=== PATIENT | female | born 1975 | race Asian ===

== ENCOUNTER 2020-12-30 11:30 | Emergency (ER) | payer OTHER ==
[~2020-12-30] VITALS: Ht 160 cm; Wt 71.4 kg
[2020-12-30] MEDS ORDERED: MORPHINE SULFATE 2 MG/ML SYRINGE IVP ONE (12:15)
[2020-12-30] MEDS ORDERED: ONDANSETRON HCL 4 MG/2 ML VIAL IVP ONE (12:15)
[2020-12-30 12:18] LABS: BASOPHILS % (AUTO) 0.6 % (0.0-2.0); EOSINOPHILS % (AUTO) 2.9 % (1.0-6.0); HEMATOCRIT 41.2 % (36-46); HEMOGLOBIN 13.6 g/dL (12.0-16.0); LYMPHOCYTES # (AUTO) 2.3 K/uL (1.0-4.8); LYMPHOCYTES % (AUTO) 36.3 % (22.0-44.0); MEAN CORPUSCULAR HEMOGLOBIN 30.7 pg (26.0-34.0); MEAN CORPUSCULAR VOLUME 93 fL (80-100); MONOCYTES # (AUTO) 0.4 K/uL (0.1-1.0); MONOCYTES % (AUTO) 5.8 % (2.0-9.0); NEUTROPHILS # (AUTO) 3.5 K/uL (1.8-7.7); NEUTROPHILS % (AUTO) 54.4 % (40.0-70.0); PLATELET COUNT (AUTO) 231 K/uL (150-450); RED BLOOD CELL COUNT(AUTO) 4.43 MIL/uL (4.00-5.20); RED CELL DISTRIBUTION WIDTH 12.9 % (11.5-14.5)
[2020-12-30 12:30] LABS: ANION GAP 10 mmol/L (8-16); CALCIUM, TOTAL 8.8 mg/dL (8.8-10.5); CARBON DIOXIDE 27 mmol/L (22-29); CHLORIDE 103 mmol/L (98-107); CREATININE 0.73 mg/dL (0.60-1.30); GLOMERULAR FILTR. RATE CALC > 60 mL/min (>60); GLUCOSE,RANDOM 86 mg/dL (70-110); POTASSIUM 3.8 mmol/L (3.5-5.1); SODIUM SERUM 140 mmol/L (136-145); UREA NITROGEN, BLOOD 19 mg/dL (7-18)
[2020-12-30 12:44] LABS: ALANINE AMINOTRANSFERASE 37 U/L (12-78); ALBUMIN 3.9 g/dL (3.4-5.0); ALKALINE PHOSPHATASE 54 U/L (46-116); ASPARTATE AMINOTRANSFERASE 25 U/L (15-37); BILIRUBIN,TOTAL 0.6 mg/dL (0.1-1.0); HCG,QUANTITATIVE < 1 mIU/mL (0-6); TOTAL PROTEIN, SERUM 7.9 g/dL (6.4-8.2)
[2020-12-30] MEDS ORDERED: METHOCARBAMOL 100 MG/ML 10 ML VIAL IVP ONE (12:45)
[2020-12-30 16:06] VITALS: BP 144/80
== END 2020-12-30 17:25 | disposition home or self-care (01) ==
LOC: EMS 11:33
DX: S10.83XA Contusion of other specified part of neck, initial encounter (principal); S20.229A Contusion of unspecified back wall of thorax, initial encounter; S00.93XA Contusion of unspecified part of head, initial encounter; V43.52XA Car driver injured in collision with other type car in traffic accident, initial encounter; Y93.89 Activity, other specified; Y92.488 Other paved roadways as the place of occurrence of the external cause; Y99.8 Other external cause status
CPT/HCPCS: 36415; 70450; 71045; 72070; 72100; 72125; 72170; 80053; 84702; 85025; 96374; 96375; 99285; J2270; J2405; J2800

== ENCOUNTER 2024-03-14 02:59 | Emergency (ER) | payer OTHER ==
[~2024-03-14] VITALS: Ht 266.7 cm; Wt 77.3 kg
[2024-03-14 03:00] VITALS: TEMP 97.4
[2024-03-14] MEDS ORDERED: PROP10TA72 PO (03:13)
[2024-03-14] MEDS ORDERED: SERT-439 PO (03:13)
[2024-03-14] MEDS ORDERED: MAGN420T PO (03:13)
[2024-03-14] MEDS ORDERED: ATOR10TA69 PO (03:13)
[2024-03-14] MEDS ORDERED: CHOL200059 PO (03:13)
[2024-03-14] MEDS ORDERED: FLUT16SP IH (03:13)
[2024-03-14] MEDS ORDERED: LIDO700A30 ID (03:13)
[2024-03-14] MEDS ORDERED: TRAZ-252 PO (03:13)
[2024-03-14] MEDS ORDERED: SPIR50TA27 PO (03:13)
[2024-03-14] MEDS ORDERED: FAMO40TA7 PO (03:13)
[2024-03-14] MEDS: OxyCODONE HCL/ACETAMINOPHEN 5-325 MG TABLET PO ONE (03:43)
[2024-03-14] MEDS: DIAZEPAM 5 MG TABLET PO ONE (03:43)
[2024-03-14] MEDS: KETOROLAC TROMETHAMINE 60 MG/2 ML VIAL IM ONE (03:43)
[2024-03-14] MEDS: LIDOCAINE 5% TRANSDERMAL PATCH TD ONE (03:44)
[2024-03-14 04:35] VITALS: BP 144/77; PULSE 64; RESP 20
== END 2024-03-14 04:55 | disposition home or self-care (01) ==
LOC: EMS 03:30
DX: S29.012A Strain of muscle and tendon of back wall of thorax, initial encounter (principal); M75.101 Unspecified rotator cuff tear or rupture of right shoulder, not specified as traumatic; X58.XXXA Exposure to other specified factors, initial encounter; Y93.89 Activity, other specified; Y92.89 Other specified places as the place of occurrence of the external cause; Y99.8 Other external cause status
CPT/HCPCS: 99284; 96372; J1885